=== PATIENT | male | born 1960 | race Caucasian/White ===

== ENCOUNTER 2016-09-30 04:24 | Emergency (ER) | payer SELFPAY ==
--- NOTE | 2016-09-30 04:58 | EDM.PDOC ---
ED HPI Trauma - General Chief Complaint: Lower Extremity Injury/Pain Stated Complaint: RIGHT LEG PAIN Time Seen by Provider: 09/30/16 04:57 Source: Reports: Patient - History of Present Illness INITIAL COMMENTS - FREE TEXT/NARRATIVE: HISTORY AND PHYSICAL: History of present illness: [] Patient presents with right lower extremity pain and swelling involving both thigh, and mildly the calf he does have Homans sign positive, I also note muscle spasm No fever nausea vomiting chills sweats no chest pain or shortness breath Review of systems: As per history of present illness and below otherwise all systems reviewed and negative. Past medical history: As per history of present illness and as reviewed below otherwise noncontributory. Surgical history: As per history of present illness and as reviewed below otherwise noncontributory. Social history: No reported history of drug or alcohol abuse. Family history: As per history of present illness and as reviewed below otherwise noncontributory. Physical exam: HEENT: Atraumatic, normocephalic, pupils reactive, negative for conjunctival pallor or scleral icterus, mucous membranes moist, throat clear, neck supple, nontender, trachea midline. Lungs: Clear to auscultation, breath sounds equal bilaterally, chest nontender. Heart: S1S2, regular, negative for clicks, rubs, or JVD. Abdomen: Soft, nondistended, nontender. Negative for masses or hepatosplenomegaly. Negative for costovertebral tenderness. Pelvis: Stable nontender. Genitourinary: Deferred. Rectal: Deferred. Extremities: Atraumatic, negative for cords or calf pain on the left. Right is Homans positive Neurovascular unremarkable. Neuro: Awake, alert, oriented. Cranial nerves II through XII unremarkable. Cerebellum unremarkable. Motor and sensory unremarkable throughout. Exam nonfocal. Diagnostics: [] Venous Doppler ultrasound right lower extremity Therapeutics: [] Tru wrap the thigh Rest ice ibuprofen Impression: [] Muscle spasm Definitive disposition and diagnosis as appropriate pending reevaluation and review of above. Allergies/ADRs: Allergies No Known Allergies Allergy (Verified 09/30/16 04:33) Home Medications: Ambulatory Orders . [No Known Home Meds] 09/30/16 [Confirmed 09/30/16] Past Medical History - Past Health History Medical/Surgical History: Denies Medical/Surgical History Social & Family History - Tobacco Use Smoking Status *Q: Never Smoker Second Hand Smoke Exposure: No - Caffeine Use Caffeine Use: Reports: Coffee, Energy drinks, Soda - Recreational Drug Use Recreational Drug Use: No Review of Systems - Review of Systems Review Of Systems: ROS reveals no pertinent complaints other than HPI. Trauma Exam - Physical Exam Exam: See Below Course - Vital Signs Last Recorded V/S: Last Vital Signs Temp 36.5 C 09/30/16 04:38 Pulse 98 09/30/16 04:38 Resp 18 09/30/16 04:38 BP 129/74 09/30/16 04:38 Pulse Ox 96 09/30/16 04:38 - Orders/Labs/Meds Orders: Active Orders 24 hr Category Date Time Status Venous Doppler Lwr Ext Rt [US] Stat Exams 09/30/16 04:57 Taken Departure - Departure Time of Disposition: 06:52 Disposition: Home, Self-Care 01 Condition: good Clinical Impression: Muscle spasm Forms: ED Department Discharge Additional Instructions: Rest Ice 20 minute intervals 3 times daily Ibuprofen 400 mg 3 times daily 7-10 days Tru wrap rate and Followup with primary care in 2 weeks her as needed [facility] - Primary Care [address] [place] [address] The following information is given to patients seen in the emergency department who are being discharged to home. This information is to outline your options for follow-up care. We provide all patients seen in our emergency department with a follow-up referral. The need for follow-up, as well as the timing and circumstances, are variable depending upon the specifics of your emergency department visit. If you don't have a primary care physician on staff, we will provide you with a referral. We always advise you to contact your personal physician following an emergency department visit to inform them of the circumstance of the visit and for follow-up with them and/or the need for any referrals to a consulting specialist. The emergency department will also refer you to a specialist when appropriate. This referral assures that you have the opportunity for follow-up care with a specialist. All of these measure are taken in an effort to provide you with optimal care, which includes your follow-up. Under all circumstances we always encourage you to contact your private physician who remains a resource for coordinating your care. When calling for follow-up care, please make the office aware that this follow-up is from your recent emergency room visit. If for any reason you are refused follow-up, please contact the [facility] emergency department at and asked to speak to the emergency department charge nurse. - My Orders Last 24 Hours: My Active Orders 09/30/16 04:57 Venous Doppler Lwr Ext Rt [US] Stat - Assessment/Plan Last 24 Hours: My Active Orders 09/30/16 04:57 Venous Doppler Lwr Ext Rt [US] Stat
[2016-09-30 07:18] VITALS: BP 142/70
--- NOTE | 2016-09-30 15:47 | US ---
EXAM DATE: 09/30/16 PATIENT'S AGE: 56 Patient: JORY GRADY Facility: [place], [place] Site . Site : 1960 Study: US Extremity Right [id number]/2/2017 6:18:51 AM Ordering Physician: Doctor Koo Final Report: INDICATION: R leg pain and swelling INDICATION: Lower extremity pain and swelling. TECHNIQUE: Ultrasound venous duplex lower right extremity. Compression venous exam was performed using alexandra-scale, color Doppler, and spectral Doppler imaging. COMPARISON: None. FINDINGS: Sonographic imaging demonstrates the right common femoral, deep femoral, superficial femoral, popliteal, posterior tibial and greater saphenous and veins to be fully compressible with normal color Doppler blood flow. IMPRESSION: No DVT is identified in the right lower extremity. Dictated by Jack Sullivan MD @ 09/30/2016 6:24:41 AM Dictated by: Jack Sullivan MD @ 09/30/2016 06:24:49 (Electronic Signature) Report Signed by Proxy. ROSEMARY
== END 2016-09-30 07:16 | disposition home or self-care (01) ==
LOC: MW.ED 04:24
DX: M62.831 Muscle spasm of calf (principal)
CPT/HCPCS: 93971-26-RT; 93971-RT; 99282; 99283-25